=== PATIENT | female | born 1990 | race Caucasian/White ===

== ENCOUNTER 2016-09-25 17:08 | Emergency (ER) | payer MEDICAID ==
[2016-09-25 18:19] VITALS: BP 127/80
--- NOTE | 2016-09-25 18:44 | EDM.PDOC ---
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 Valencia At [facility] , presenting to clinic with c/o uterine contraction since 9 PM last night. Pt claims that she had contraction every 2 minutes last night and was loosing small amounts of urine with contraction.Pt claims that her contractions have got worse over the day. And has been feeling contraction every 2 minutes. She has been having good movements. 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 Also she has been treated for UTI with macrobid. No dysuria. fever or chills. No nausea or vomiting. 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 - Related Data Allergies Allergy/AdvReac Type Severity Reaction Status Date / Time Penicillins Allergy Cannot Verified 09/25/16 17:52 Remember Home Meds: Home Meds Acetaminophen with Codeine [Tylenol with Codeine #3 Tablet] 1 each PO Q4HR PRN 09/25/16 [History] NIFEdipine [Procardia] 10 mg PO Q4HR PRN 09/25/16 [History] Nitrofurantoin Monohyd/M-Cryst [Macrobid 100 mg Capsule] 100 mg PO BID 09/25/16 [History] Past Medical History Gastrointestinal History: Reports: GERD Genitourinary History: Reports: Other (See Below) Other Genitourinary History: UTI 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 History: Reports: Endometriosis, - Past Surgical History GI Surgical History: Reports: Other (See Below) Other GI Surgeries/Procedures: EXPLORATORY LAPAROTOMY Social & Family History - Tobacco Use Smoking Status *Q: Never Smoker Second Hand Smoke Exposure: No - Caffeine Use Caffeine Use: Reports: Soda ED ROS GENERAL - Review of Systems Review Of Systems: See Below Constitutional: Denies: Fever, Chills, Diaphoresis, Decreased Appetite HEENT: Denies: Sinus Problem, Throat Pain, Throat Swelling Respiratory: Denies: Shortness of Breath, Cough, Sputum Cardiovascular: Denies: Chest Pain, Lightheadedness Endocrine: Denies: Fatigue GI/Abdominal: Reports: Abdominal Pain. Denies: Constipation, Diarrhea, Nausea, Vomiting : Reports: Frequency. Denies: Dysuria, Flank Pain Musculoskeletal: Denies: Joint Pain, Joint Swelling Skin: Denies: Pruritis, Rash ED EXAM, GENERAL - Physical Exam Exam: See Below Exam Limited By: No Limitations General Appearance: Alert, WD/WN, No Apparent Distress Eye Exam: Bilateral Eye: EOMI, PERRL Ears: Normal External Exam, Normal Canal, Hearing Grossly Normal, Normal TMs Nose: Normal Inspection, Normal Mucosa, No Blood Throat/Mouth: Normal Inspection, Normal Lips, Normal Teeth, Normal Gums, Normal Oropharynx, Normal Voice, No Airway Compromise Head: Atraumatic, Normocephalic Neck: Normal Inspection, Supple, Non-Tender, Full Range of Motion Respiratory/Chest: No Respiratory Distress, Lungs Clear, Normal Breath Sounds, No Accessory Muscle Use, Chest Non-Tender Cardiovascular: Normal Peripheral Pulses, Regular Rate, Rhythm, No Edema, No Gallop, No JVD, No Murmur, No Rub GI/Abdominal: Normal Bowel Sounds, Soft (Female) Exam: Other (Exam Done with Krista Martinezery: speculum exam done: there is no pooling of luid in the vaginal vault. Cervix is visualised, mucus plug is seen, thinned. fibronectin done. Nitrizine done and is negative. And fern test is negative. ). No: Cervix Motion Tenderness Course - Vital Signs Text/Narrative:: Pt's was placed on toco and continous monitoring. heart tones are reactive and Reassuring .No uterine contractions seen on [place] Pelvic exam done with Krista : cervix is 1 cm dilated with 60% effaced. Nitirizine negative , Fern test is negative. Her CBC is normal ANd Her UA is negative.Pt reassured that she does not have premature rupture of membranes. And At this point I did contact [facility] and discuss with OB nurse as we do not do OB care at [facility], but they do not admit anybody under 36 wks. So I did call Dr. Peterson and discuss with him patient finding. His recommendation was Rest and hydration at home. If her contraction or uterine pressure worsens she could go down to [facility] for further evaluation. Pt does agree and prefers to go home Last Recorded V/S: Last Vital Signs Temp 98.4 F 09/25/16 17:55 Pulse 92 09/25/16 17:55 Resp 18 09/25/16 17:55 BP 127/80 09/25/16 17:55 Pulse Ox 98 09/25/16 17:55 - Orders/Labs/Meds Orders: Active Orders 24 hr Category Date Time Status CBC WITH AUTO DIFF [HEME] Stat Lab 09/25/16 17:45 Received FIBRONECTIN [REF] Stat Lab 09/25/16 17:45 Received UA W/MICROSCOPIC [URIN] Stat Lab 09/25/16 17:45 Results Labs: Laboratory Tests 09/25/16 09/25/16 Range/Units 17:45 17:45 Urine Color Yellow Urine Appearance Clear (CLEAR) Urine pH 7.0 (5.0-8.0) Ur Specific Willis 1.015 (1.003-1.030) Urine Protein Negative (NEGATIVE) mg/dL Urine Glucose (UA) Negative (NEGATIVE) mg/dL Urine Ketones Negative (NEGATIVE) mg/dL Urine Occult Blood Negative (NEGATIVE) Urine Nitrite Negative (NEGATIVE) Urine Bilirubin Negative (NEGATIVE) Urine Urobilinogen 0.2 (0.2-1.0) E.U./dL Ur Leukocyte Esterase Negative (NEGATIVE) Amniotic Ferning Test Negative Departure - Departure Time of Disposition: 19:30 Disposition: Home, Self-Care 01 Condition: fair Clinical Impression: Uterine contractions at greater than 20 weeks of gestation - Discharge Information Forms: ED Department Discharge - Problem List & Annotations (1) Uterine contractions at greater than 20 weeks of gestation SNOMED Code(s): 800812517 Code(s): RJP9916 - Status: Acute - Problem List Review Problem List Initiated/Reviewed/Updated: Yes - My Orders Last 24 Hours: My Active Orders 09/25/16 17:45 CBC WITH AUTO DIFF [HEME] Stat FIBRONECTIN [REF] Stat UA W/MICROSCOPIC [URIN] Stat - Assessment/Plan Last 24 Hours: My Active Orders 09/25/16 17:45 CBC WITH AUTO DIFF [HEME] Stat FIBRONECTIN [REF] Stat UA W/MICROSCOPIC [URIN] Stat Assessment:: 32wks IUP with contractions- Not in premature labour Plan: Pt's was placed on toco and continous monitoring. heart tones are reactive and Reassuring .No uterine contractions seen on [place] Pelvic exam done with Chaprone : cervix is 1 cm dilated with 60% effaced. Nitirizine negative , Fern test is negative. Her CBC is normal ANd Her UA is negative.Pt reassured that she does not have premature rupture of membranes. And At this point I did contact [facility] and discuss with OB nurse as we do not do OB care at [facility], but they do not admit anybody under 36 wks. So I did call Dr. Peterson and discuss with him patient finding. His recommendation was Rest and hydration at home. If her contraction or uterine pressure worsens she could go down to [facility] for further evaluation. Pt does agree and prefers to go home
== END 2016-09-25 19:03 | disposition home or self-care (01) ==
LOC: LB.ED 17:08
DX: O62.9 Abnormality of forces of labor, unspecified (principal); K21.9 Gastro-esophageal reflux disease without esophagitis; Z88.0 Allergy status to penicillin; Z3A.20 20 weeks gestation of pregnancy; Z37.9 Outcome of delivery, unspecified
CPT/HCPCS: 36415; 81001; 82274; 82731; 85025; 99284

== ENCOUNTER 2020-10-27 06:29 | Emergency (ER) | payer MEDICAID ==
[2020-10-27 06:53] VITALS: BP 148/90; PULSE 106
[2020-10-27] MEDS ORDERED: Ketorolac 30 MG/ML SDV IVPUSH ONE (06:58)
[2020-10-27] MEDS ORDERED: Ketorolac 30 MG/ML SDV ONE (07:15)
[2020-10-27] MEDS ORDERED: methylPREDNISolone Sodium Succinate 40 MG/1 ML SDV IVPUSH ONE (07:50)
[2020-10-27] MEDS ORDERED: methylPREDNISolone Sodium Succinate 40 MG/1 ML SDV ONE (08:01)
--- NOTE | 2020-10-27 09:33 | CT ---
Date of Service: 10/27/2020 Clinical Data: Abdominal pain, upper left quadrant. ENHANCED ABDOMEN AND PELVIC CT: Multislice acquisition through the abdomen and pelvis with IV, but without oral contrast was performed. No priors. The lung bases are clear. The heart size is normal. There is mild diffuse fatty infiltration of the liver with increased fatty infiltration adjacent to the falciform ligament. No other focal hepatic lesions. The gallbladder appears normal. No calcified gallstones. No pericholecystic fluid. No biliary duct dilatation There is a subcentimeter low density lesion in the spleen which is most likely a cyst. The spleen otherwise appears normal. The pancreas appears normal. The right and left adrenals appear normal. The right and left kidneys appear normal and enhance symmetrically. No hydronephrosis or hydroureter. There is a small amount of fluid within the bladder. It appears normal. There are low-density lesion in both ovaries consistent with bilateral ovarian cysts. The appendix is not dilated. No evidence of appendicitis. There is a moderate amount of stool noted within the cecum, ascending colon, and transverse colon. No free air. No free fluid. No dilated loops of bowel. No adenopathy. No aortic aneurysm or dissection. There is a fat containing umbilical hernia. No other significant findings. IMPRESSION: No acute abnormalities. Multiple other findings as discussed above. [id number] [facility]
--- NOTE | 2020-10-28 11:55 | ER ---
HISTORY OF PRESENT ILLNESS: A 30-year-old lady here with complaints of abdominal pain in the upper left quadrant that has been ongoing for the last 2 or 3 days. It seems like it started about a month ago, but it just got worse lately. She has not had any falls and injury to this area. She has not been running a fever and states that she does have history of constipation. She has been using enemas to help with this as well as FiberCon. The patient also has felt some numbness in her face that just started this morning, and she has pain on the anterior left chest wall that she has had since last fall. She has been seen for a dental problem and has had a CT of the neck and left jaw and is currently on clindamycin, which she just started taking about a day ago. OBJECTIVE: GENERAL APPEARANCE: The patient is awake and alert. No obvious distress. VITAL SIGNS: Reviewed. She is afebrile. Pulse is 106, blood pressure 148/90, respirations 18, O2 sats were 100% on room air. HEENT: While we were talking, I have noticed a blotchy rash showing up on her face around her mask. The patient states that she does feel warm or flushed. I had the patient remove the mask and she has a blotchy, slightly raised rash present on her face, both sides. Oral mucous membranes moist. Tonsils not enlarged or injected. Pharynx not inflamed. LUNGS: Clear. CHEST: The patient does have tenderness on the left anterior chest wall with even light touch just above the breast area. CARDIAC: Heart sounds distinct without murmurs. ABDOMEN: Soft. There is tenderness in the upper left quadrant with palpation and guarding with palpation. Bowel sounds are present. SKIN: Otherwise, warm and dry. LABORATORY DATA: Labs include a CBC which is normal. Comprehensive metabolic panel shows a slightly low potassium level of 3.3, BUN is at 4, lipase is low at 50. The urine is normal. INITIAL TREATMENT: At this point, an IV was started and the patient was given Toradol 30 mg and she was sent for a CT of the abdomen. Upon returning from the CT scan, she had some puffiness of both eyes, even though the rash seemed like it was a little better. I then gave the patient Solu-Medrol 80 mg IV. We monitored the patient for approximately an hour and the rash completely resolved and the numbness resolved as well. CT scan report reveals nothing acute other than moderate stool in the ascending and transverse colon. DIAGNOSES: 1. Abdominal pain with moderate constipation. 2. Allergic reaction, most likely to clindamycin. TREATMENT PLAN: The patient is instructed to use Benadryl today and tomorrow if needed. She is to stop her clindamycin and let her primary care provider know this. I advised the patient to use mag citrate 1 pint p.o., take it quickly to help cleanse the bowel and see if that helps with her abdominal pain. She can repeat the dose tomorrow x1 if needed, and recheck is p.r.n. CRS/MODL /[id number]
== END 2020-10-27 09:15 | disposition home or self-care (01) ==
LOC: LB.ED 06:29
DX: K59.00 Constipation, unspecified (principal); T36.8X5A Adverse effect of other systemic antibiotics, initial encounter
CPT/HCPCS: 36415; 74177; 80053; 81001; 83690; 85025; 85651; 96374; 96375; 99284; 99284-25; J1885; J2920